=== PATIENT | female | born 2000 | race African-American/Black ===

== ENCOUNTER 2019-06-11 05:46 | Emergency (ER) | payer SELFPAY ==
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
[2019-06-11 06:06] VITALS: BP 129/87; PULSE 96; TEMP 97.6; BMI 46.0
[2019-06-11] MEDS ORDERED: ACETAMINOPHEN 325 MG TABLET (FP) PO ONE (06:15)
[2019-06-11 06:29] LABS: BASO % 0.6 % (0-2.0); EOS % 1.4 % (0-4.5); HEMATOCRIT 35.5 % (32.4-45.2); LYMPH % 34.7 % (8-40); MCH 30.3 pg (25.7-33.7); MCHC 33.8 g/dl (32.0-36.0); MEAN CELL VOLUME 89.7 fl (80-96); MEAN PLT VOLUME 8.2 fl (7.5-11.1); MONO % 9.3 % (3.8-10.2); PLATELET COUNT 308 K/MM3 (134-434); RBC 3.95 M/mm3 (3.60-5.2); WHITE BLOOD COUNT 6.5 K/mm3 (4.0-10.0)
[2019-06-11] MEDS ORDERED: ACETAMINOPHEN 325 MG TABLET (FP) ONE (06:29)
[2019-06-11 06:50] LABS: COCAINE, UR NEGATIVE ng/ml (CUTOFF=300); METHADONE, UR NEGATIVE ng/ml (CUTOFF=300); OPIATES, URI NEGATIVE ng/ml (CUTOFF=300); PHENCYCLIDINE,URINE NEGATIVE ng/ml (CUTOFF=25); URINE AMPHETAMINES NEGATIVE ng/ml (CUTOFF=500); URINE BARBITURATES NEGATIVE ng/ml (CUTOFF=200); URINE BENZODIAZEPINES NEGATIVE ng/ml (CUTOFF=200)
[2019-06-11 07:04] LABS: ALBUMIN 3.9 g/dl (3.4-5.0); ALK PHOS 74 U/L (45-117); ANION GAP 8 MMOL/L (8-16); BILIRUBIN,TOTAL 0.2 mg/dL (0.2-1); BLOOD UREA NITROGEN 12.9 mg/dL (7-18); CHLORIDE 107 mmol/L (98-107); CO2 25 mmol/L (21-32); CREATININE 0.8 mg/dL (0.55-1.3); GLUCOSE,RANDOM 100 mg/dL (74-106); POTASSIUM 4.1 mmol/L (3.5-5.1); SGOT/AST 23 U/L (15-37); SGPT/ALT 33 U/L (13-61); SODIUM 140 mmol/L (136-145); TOT PROT 7.4 g/dl (6.4-8.2)
--- NOTE | 2019-06-11 08:23 | PDOC ---
*Physical Exam - Vital Signs Last Vital Signs Temp Pulse Resp BP Pulse Ox 97.6 F 96 H 18 129/87 98 06/11/19 06:01 06/11/19 06:01 06/11/19 06:01 06/11/19 06:01 06/11/19 06:01 ED Treatment Course - LABORATORY CBC & Chemistry Diagram: 06/11/19 06:20 06/11/19 06:20 - ADDITIONAL ORDERS Additional order review: Laboratory Results 06/11/19 06/11/19 06/11/19 06:20 06:20 06:20 Sodium 140 Potassium 4.1 Chloride 107 Carbon Dioxide 25 Anion Gap 8 BUN 12.9 Creatinine 0.8 Est GFR (CKD-EPI)AfAm 122.14 Est GFR (CKD-EPI)NonAf 105.39 Random Glucose 100 Calcium 9.0 Total Bilirubin 0.2 AST 23 ALT 33 Alkaline Phosphatase 74 Total Protein 7.4 Albumin 3.9 Beta HCG, Quant < 1.0 Cancelled Opiates Screen Negative Methadone Screen Negative Barbiturate Screen Negative Phencyclidine Screen Negative Ur Amphetamines Screen Negative MDMA (Ecstasy) Screen Negative Benzodiazepines Screen Negative Cocaine Screen Negative U Marijuana (THC) Screen Positive A* Alcohol, Quantitative < 3.0 06/11/19 06:20 RBC 3.95 MCV 89.7 MCHC 33.8 RDW 14.0 MPV 8.2 Neutrophils % 54.0 Lymphocytes % 34.7 Monocytes % 9.3 Eosinophils % 1.4 Basophils % 0.6 - Medications Given in the ED: ED Medications Discontinued Medications Generic Name Dose Route Start Last Admin Trade Name Freq PRN Reason Stop Dose Admin Acetaminophen 650 mg 06/11/19 06:15 06/11/19 06:32 Tylenol - PO 06/11/19 06:16 650 mg ONCE ONE Administration Medical Decision Making - Medical Decision Making 06/11/19 08:[address] read pending 06/11/19 08:41 No evidence of a focal intracranial lesion or hemorrhage seen. Mild soft tissue swelling of the scalp with a laceration over left side of the forehead. Patient ok to discharge. *DC/Admit/Observation/Transfer Diagnosis at time of Disposition: Head injury Qualifiers: Encounter type: initial encounter Qualified Code(s): S09.90XA - Unspecified injury of head, initial encounter - Discharge Dispostion Disposition: HOME Condition at time of disposition: Improved Decision to Admit order: No - Referrals - Patient Instructions Printed Discharge Instructions: DI for Suture Removal Additional Instructions: Come back to the emergency department for any new, worsening or concerning symptom. Follow up with your primary care physician and OBGYN within the next 3 days. Come back to the emergency department, your primary doctor or any urgent care for suture removal in 5 to 7 days. - Post Discharge Activity
== END 2019-06-11 08:49 | disposition home or self-care (01) ==
LOC: JER 05:46
PROC: 0HQ1XZZ Repair Face Skin, External Approach (ICD-10-PCS; principal; 2019-06-11)
DX: S09.90XA Unspecified injury of head, initial encounter (principal); S01.81XA Laceration without foreign body of other part of head, initial encounter; W01.190A Fall on same level from slipping, tripping and stumbling with subsequent striking against furniture, initial encounter; Y93.89 Activity, other specified; Y92.003 Bedroom of unspecified non-institutional (private) residence as the place of occurrence of the external cause
CPT/HCPCS: 36415; 70450-TC; 80053; 80307; 84702; 85025; 99283-25

== ENCOUNTER 2019-10-04 01:25 | Emergency (ER) | payer OTHER ==
[2019-10-04 01:44] VITALS: BP 129/72; PULSE 77; TEMP 98.7; BMI 45.1
--- NOTE | 2019-10-04 01:52 | PDOC ---
*Physical Exam - Vital Signs Last Vital Signs Temp Pulse Resp BP Pulse Ox 98.7 F 77 18 129/72 100 10/04/19 01:32 10/04/19 01:32 10/04/19 01:32 10/04/19 01:32 10/04/19 01:32 Medical Decision Making - Medical Decision Making 10/04/19 01:52 Patient seen by the advanced practice provider under my direct supervision. Ancillary testing reviewed as necessary. I agree with plan as outlined by the advanced practice provider. Discharge - Discharge Information Problems reviewed: Yes Clinical Impression/Diagnosis: Laceration of eyebrow, right Qualifiers: Encounter type: initial encounter Qualified Code(s): S01.111A - Laceration without foreign body of right eyelid and periocular area, initial encounter Disposition: HOME - Follow up/Referral - Patient Discharge Instructions Patient Printed Discharge Instructions: DI for Laceration Repair With Dermabond - Post Discharge Activity
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
[2019-10-04] MEDS ORDERED: ACETAMINOPHEN 500 MG TABLET (FP) PO ONE (02:01)
[2019-10-04] MEDS ORDERED: ACETAMINOPHEN 500 MG TABLET (FP) ONE (02:15)
== END 2019-10-04 02:15 | disposition home or self-care (01) ==
LOC: JER 01:25
PROC: 0HQ1XZZ Repair Face Skin, External Approach (ICD-10-PCS; principal; 2019-10-04)
DX: S01.112A Laceration without foreign body of left eyelid and periocular area, initial encounter (principal); W20.8XXA Other cause of strike by thrown, projected or falling object, initial encounter; Y93.89 Activity, other specified; Y92.410 Unspecified street and highway as the place of occurrence of the external cause; Z91.041 Radiographic dye allergy status
CPT/HCPCS: 99281-25

== ENCOUNTER 2019-11-30 15:40 | Emergency (ER) | payer OTHER ==
--- NOTE | 2019-11-30 15:49 | PDOC ---
Rapid Medical Evaluation Chief Complaint: Headache Time Seen by Provider: 11/30/19 15:44 Medical Evaluation: Allergies Allergy/AdvReac Type Severity Reaction Status Date / Time Iodinated Contrast Media Allergy Verified 10/04/19 01:34 11/30/19 15:44 I have performed a brief in-person evaluation of this patient. The patient presents with a chief complaint of: right sided headache acute onset yesterday. + weakness/ no fevers or URI symptoms. Pertinent physical exam findings: tearful, hyperventilating, A&O x 3 last period in September I have ordered the following: UA/ UCG The patient will proceed to the ED for further evaluation. 11/30/19 15:48 Discharge Disposition - Diagnosis Headache - Discharge Dispostion Condition at time of disposition: Stable - Referrals - Patient Instructions - Post Discharge Activity
[2019-11-30 15:52] VITALS: BP 105/57; PULSE 83; TEMP 97.6; BMI 42.9
[2019-11-30 16:28] LABS: EPI CELLS 4.5 /HPF (0-5/HPF); HYALINE CASTS 3 /lpf (0-8); URINE APPEARANCE CLEAR; URINE BACTERIA 107.9 /hpf (NEGATIVE); URINE BILIRUBIN NEGATIVE (NEGATIVE); URINE COLOR YELLOW; URINE GLUCOSE (UA) NEGATIVE (NEGATIVE); URINE KETONE 1+ (NEGATIVE); URINE LEUK ESTERASE NEGATIVE (NEGATIVE); URINE NITRITE NEGATIVE (NEGATIVE); URINE PROTEIN TRACE (NEGATIVE); URINE RBC 1 /hpf (0-4); URINE UROBILINOGEN 0.2 mg/dL (0.2-1.0); URINE WBC 2 /hpf (0-5)
--- NOTE | 2019-11-30 16:30 | PDOC ---
History of Present Illness - General Chief Complaint: Headache Stated Complaint: WEAKNESS/ HEADACHE Time Seen by Provider: 11/30/19 15:44 - History of Present Illness Initial Comments: Joy Valenzuela is a 19yo otherwise healthy woman who presents with several complaints. She states that she had a mechanical fall at work yesterday afternoon. She went to pick something up, lost her balance, and fell. She hit her right forehead on a table as she fell. She did not lose consciousness and rembers the entire fall; she was able to get up immediately after the injury. She went home and went about her normal activities, but this morning when she woke up she had a headache. The headache is located over her right forehead. She took 1000mg acetaminophen in the afternoon with mimimal improvement, so she was concerned and came to the ED for evaluation. Ms Valenzuela denies any confusion, sleepiness, vomiting, focal weakness, numbness, tingling, changes in speech, or changes in vision following the incident. She endorses nausea, but she states this is chronic and that she was referred to GI. She also endorses chronic lower abdominal cramping; her LMP was in early September, and she has not taken a test. Past History - Past Medical History Allergies/Adverse Reactions: Allergies Allergy/AdvReac Type Severity Reaction Status Date / Time Iodinated Contrast Media Allergy Verified 10/04/19 01:34 Home Medications: Ambulatory Orders NK [No Known Home Medication] 06/11/19 COPD: No - Immunization History Immunization Up to Date: Yes - Psycho Social/Smoking Cessation Hx Smoking History: Never smoked Have you smoked in the past 12 months: No Information on smoking cessation initiated: No Hx Alcohol Use: No Drug/Substance Use Hx: No Review of Systems - Review of Systems Comments:: General: No fevers, no chills, no weight or appetite change, no malaise HEENT: No changes in vision, no changes in hearing, no congestion, no sore throat. +BROWN CV: No chest pain, no palpitations, no LE edema Pulm: No SOB, no cough, no wheezing GI: +frequent nausea, no vomiting, no change in bowel habits, no melena : No frequency, no urgency, no dysuria Musc: No back pain, no joint swelling, no recent injury Skin: No rash, no lesions, no erythema Endo: No excessive thirst, no heat/cold intolerance Heme: No unusual bruising or bleeding, no swollen glands Neuro: No syncope, no numbness/tingling, no focal weakness Vasc: No claudication Psych: No recent change in mood, no SI or HI *Physical Exam - Vital Signs Last Vital Signs Temp Pulse Resp BP Pulse Ox 97.6 F 83 18 105/57 L 99 11/30/19 15:44 11/30/19 15:44 11/30/19 15:44 11/30/19 15:44 11/30/19 15:44 - Physical Exam General: Comfortable, no acute distress HEENT: No visible injury. No erythema, ecchymosis, edema, or other visible injury. No point tendernes. PERRL, EOMI, MMM, voice normal, normal neck ROM Cards: RRR, no murmur appreciated Pulm: Comfortable on room air, clear to auscultation bilaterally Abd: Soft, nontender, nondistended Ext: Atraumatic. No LE edema. ROM intact. WWP Skin: Normal color, no rashes or lesions Neuro: A&Ox3, CN grossly intact, normal speech, motor/sensory grossly intact and symmetric. No focal deficits. Psych: Mood appropriate to situation ED Treatment Course - LABORATORY CBC & Chemistry Diagram: 11/30/19 17:10 11/30/19 17:10 - ADDITIONAL ORDERS Additional order review: Laboratory Results 11/30/19 11/30/19 15:58 15:58 Urine Color Yellow Urine Appearance Clear Urine pH 6.0 Ur Specific [place] 1.023 Urine Protein Trace Urine Glucose (UA) Negative Urine Ketones 1+ H Urine Blood 2+ H Urine Nitrite Negative Urine Bilirubin Negative Urine Urobilinogen 0.2 Ur Leukocyte Esterase Negative Urine WBC (Auto) 2 Urine RBC (Auto) 1 Urine Casts (Auto) 3 U Epithel Cells (Auto) 4.5 Urine Bacteria (Auto) 107.9 Urine HCG, Qual Negative Medical Decision Making - Medical Decision Making 11/30/19 16:29 Joy Valenzuela is a 19yo otherwise healthy woman who presents with several complaints include a headache over the right forehead after she hit her head on a table at work yesterday. She also endorses chronic nausea and chronic lower abdominal cramping, for which she has previously been referred to GI and gyne. - Most likely mild headache secondary to low impact trauma - No red flag symptoms including neurological deficits, vomiting, AMS. Per pt, nausea is chronic. Per american head CT rules, pt does not require CT scan for this injury - UA, urine preg sent from [facility]. test negative - Will give IVF, reglan, benadryl, acetaminophen for symptoms 11/30/19 18:28 - Labs reviewed. Unremarkable - Pt feeling improved, requesting to be discharged home - Will d/c to follow up with her PMD. Will give contact info for gynecology and GI per pt request. Discussed with Dr Javid Pereira PGY2 Discharge - Discharge Information Problems reviewed: Yes Clinical Impression/Diagnosis: Headache Qualifiers: Headache type: unspecified Headache chronicity pattern: acute headache Condition: Stable Disposition: HOME - Admission No - Follow up/Referral Referrals: [facility] [Provider Group] Jonah Contreras DO [Staff Physician] - - Patient Discharge Instructions Patient Printed Discharge Instructions: DI for Closed Head Injury Additional Instructions: Discharge Instructions: You were seen in the emergency department for headache. Home Care and Follow Up: - You may use over the counter medications as needed for pain at home. 650- 1000mg acetaminophen (Tylenol) or 600mg ibuprofen (Motrin or Advil) can be used every 6-8 hours. If needed for continued pain, these medications may be alternated every 3-4 hours. For example, if you take ibuprofen at 9am, you may take acetaminophen at noon, ibuprofen at 3pm, etc. - It is strongly recommended that you take ibuprofen with food to help prevent stomach irritation. - Try using an ice pack for 20 minutes every hour or a heating pad for additional pain control. - If your pain does not improve over the next week, see your regular doctor for follow up. - You should also see a GI doctor for your nausea and a architecture manager for your irregular period. You have been given contact information. - Seek immediate medical care if you have significant worsening of your symptoms , you have multiple episodes of vomiting per hour for several hours, you are excessively sleepy, you have any neurological symptoms (one-sided weakness, changes in your speech), or any other medical emergency. - Post Discharge Activity Work/Back to School Note: Back to Work
[2019-11-30] MEDS ORDERED: KETOROLAC TROMETHAMINE 30 MG/1 ML VIAL IVPUSH ONE (16:38)
[2019-11-30] MEDS ORDERED: METOCLOPRAMIDE HCL INJECTION 10 MG/2 ML VIAL IVPUSH ONE (16:44)
[2019-11-30] MEDS ORDERED: SODIUM CHLORIDE 0.9% 500 ML INFUS.BAG IV ONE (16:44)
[2019-11-30] MEDS ORDERED: ACETAMINOPHEN 1000 MG/100 ML VIAL (NON FORMULARY) IVPB ONE (17:26)
[2019-11-30] MEDS ORDERED: ACETAMINOPHEN INJECTION 100 ML IVPB ONE (17:41)
[2019-11-30 17:53] LABS: BASO % 0.3 % (0-2.0); EOS % 0.2 % (0-4.5); HEMATOCRIT 38.7 % (32.4-45.2); HEMOGLOBIN 12.9 GM/dL (10.7-15.3); LYMPH % 14.4 % (8-40); MCH 29.7 pg (25.7-33.7); MCHC 33.2 g/dl (32.0-36.0); MEAN CELL VOLUME 89.4 fl (80-96); MEAN PLT VOLUME 8.4 fl (7.5-11.1); MONO % 7.4 % (3.8-10.2); NEUT % 77.7 % (42.8-82.8); PLATELET COUNT 307 K/MM3 (134-434); RBC 4.33 M/mm3 (3.60-5.2); RDW 14.9 % (11.6-15.6); WHITE BLOOD COUNT 7.4 K/mm3 (4.0-10.0)
[2019-11-30 18:22] LABS: ALBUMIN 3.9 g/dl (3.4-5.0); BILIRUBIN,TOTAL 0.5 mg/dL (0.2-1); BLOOD UREA NITROGEN 10.8 mg/dL (7-18); CALCIUM 9.3 mg/dL (8.5-10.1); CREATININE 0.7 mg/dL (0.55-1.3); POTASSIUM 4.3 mmol/L (3.5-5.1); TOT PROT 7.6 g/dl (6.4-8.2)
== END 2019-11-30 19:00 | disposition home or self-care (01) ==
LOC: JER 15:40 → SUPCPDRO 15:40 → JER 19:00
PROC: 3E0333Z Introduction of Anti-inflammatory into Peripheral Vein, Percutaneous Approach (ICD-10-PCS; principal; 2019-11-30)
DX: R51 Headache (principal); W01.190A Fall on same level from slipping, tripping and stumbling with subsequent striking against furniture, initial encounter; Y93.89 Activity, other specified; Y92.238 Other place in hospital as the place of occurrence of the external cause; Y99.0 Civilian activity done for income or pay; Z91.041 Radiographic dye allergy status
CPT/HCPCS: 36415; 80053; 81003; 84703; 85025; 99282-25; J0131

== ENCOUNTER 2019-12-30 03:34 | Emergency (ER) | payer OTHER ==
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
[2019-12-30] MEDS ORDERED: LACTATED RINGERS SOLUTION 1000 ML INFUS.BAG IV ONE (03:49)
[2019-12-30] MEDS ORDERED: ACETAMINOPHEN 1000 MG/100 ML VIAL (NON FORMULARY) IVPB ONE (03:49)
[2019-12-30] MEDS ORDERED: ACETAMINOPHEN INJECTION 100 ML IVPB ONE (03:51)
[2019-12-30 03:52] VITALS: BMI 47.2
--- NOTE | 2019-12-30 04:00 | PDOC ---
Attending Attestation - Resident Resident Name: Ramu Berg - ED Attending Attestation I have performed the following: I have examined & evaluated the patient, The case was reviewed & discussed with the resident, I agree w/resident's findings & plan - HPI HPI: 12/30/19 06:20 Pt was arguing with boyfriend while washing dishes. She had dizziness; went to the bathroom and she felt dizzy. States that she had a miscarriage a couple weeks back and she saw some blood in the toilet bowl. No no bleed at all. Pt appears well. She is not tachy or febrile or ill appearing - Physicial Exam PE: 12/30/19 06:22 Pt has no blood in vag vault; no admexal tenderness and no discharge Pt A+Ox3 Normal vitals abd soft no flank pain Pt states that she has some subjective suprapubic pain, SHe has normal neuro exam - Medical Decision Making 12/30/19 06:23 Pt awaiting lab results. 12/30/19 06:24 Pt's CBC normal rest pending sono will be obtained in the AM We will sign her out to the day docs.
[2019-12-30 04:26] LABS: EOS % 1.4 % (0-4.5); HEMATOCRIT 37.9 % (32.4-45.2)
[2019-12-30 04:29] LABS: BASO % 0.7 % (0-2.0); HEMOGLOBIN 12.7 GM/dL (10.7-15.3); LYMPH % 32.8 % (8-40); MCH 30.4 pg (25.7-33.7); MCHC 33.4 g/dl (32.0-36.0); MEAN PLT VOLUME 9.3 fl (7.5-11.1); MONO % 9.4 % (3.8-10.2); NEUT % 55.7 % (42.8-82.8); PLATELET COUNT 329 K/MM3 (134-434); RBC 4.17 M/mm3 (3.60-5.2); RDW 15.1 % (11.6-15.6); WHITE BLOOD COUNT 7.5 K/mm3 (4.0-10.0)
[2019-12-30 04:39] LABS: INR 0.97 (0.83-1.09); PROTHROMBIN TIME (PATIENT) 11.4 SEC (9.7-13.0)
[2019-12-30 04:42] LABS: ACTIVATED PTT 34.1 SECONDS (25.2-36.5)
[2019-12-30 06:25] LABS: PH,URINE 5.5 (5.0-8.0); URINE APPEARANCE CLEAR; URINE BILIRUBIN NEGATIVE (NEGATIVE); URINE COLOR YELLOW; URINE GLUCOSE (UA) NEGATIVE (NEGATIVE); URINE KETONE TRACE (NEGATIVE); URINE LEUK ESTERASE NEGATIVE (NEGATIVE); URINE NITRITE NEGATIVE (NEGATIVE); URINE PROTEIN NEGATIVE (NEGATIVE); URINE UROBILINOGEN 0.2 mg/dL (0.2-1.0)
[2019-12-30 06:43] LABS: ALBUMIN 4.1 g/dl (3.4-5.0); ALK PHOS 79 U/L (45-117); ANION GAP 3 MMOL/L (8-16); BILIRUBIN,TOTAL 0.2 mg/dL (0.2-1); BLOOD UREA NITROGEN 11.4 mg/dL (7-18); CALCIUM 9.2 mg/dL (8.5-10.1); CHLORIDE 106 mmol/L (98-107); CO2 30 mmol/L (21-32); CREATININE 0.9 mg/dL (0.55-1.3); GLUCOSE,RANDOM 88 mg/dL (74-106); POTASSIUM 4.6 mmol/L (3.5-5.1); SGOT/AST 28 U/L (15-37); SGPT/ALT 29 U/L (13-61); SODIUM 139 mmol/L (136-145); TOT PROT 7.9 g/dl (6.4-8.2)
--- NOTE | 2019-12-30 09:19 | PDOC ---
*Physical Exam - Vital Signs Last Vital Signs Temp Pulse Resp BP Pulse Ox 97.9 F 63 18 106/41 L 99 12/30/19 07:06 12/30/19 07:06 12/30/19 07:06 12/30/19 07:06 12/30/19 07:06 - Physical Exam 19 yo F with a hx of recent miscarriage in November 2019 presents to the emerge ncy department with vaginal spotting and abdominal cramps. ED Treatment Course - LABORATORY CBC & Chemistry Diagram: 12/30/19 04:00 12/30/19 04:07 - ADDITIONAL ORDERS Additional order review: Laboratory Results 12/30/19 12/30/19 12/30/19 05:30 04:07 04:00 PT with INR INR PTT (Actin FS) Sodium 139 Potassium 4.6 Chloride 106 Carbon Dioxide 30 Anion Gap 3 L BUN 11.4 Creatinine 0.9 Est GFR (CKD-EPI)AfAm 105.93 Est GFR (CKD-EPI)NonAf 91.40 Random Glucose 88 Calcium 9.2 Total Bilirubin 0.2 AST 28 ALT 29 Alkaline Phosphatase 79 Total Protein 7.9 Albumin 4.1 Urine Color Yellow Urine Appearance Clear Urine pH 5.5 Ur Specific Bedias 1.032 Urine Protein Negative Urine Glucose (UA) Negative Urine Ketones Trace H Urine Blood Negative Urine Nitrite Negative Urine Bilirubin Negative Urine Urobilinogen 0.2 Ur Leukocyte Esterase Negative Blood Type O POSITIVE Antibody Screen Negative 12/30/19 04:00 PT with INR 11.40 INR 0.97 PTT (Actin FS) 34.1 Sodium Potassium Chloride Carbon Dioxide Anion Gap BUN Creatinine Est GFR (CKD-EPI)AfAm Est GFR (CKD-EPI)NonAf Random Glucose Calcium Total Bilirubin AST ALT Alkaline Phosphatase Total Protein Albumin Urine Color Urine Appearance Urine pH Ur Specific Bedias Urine Protein Urine Glucose (UA) Urine Ketones Urine Blood Urine Nitrite Urine Bilirubin Urine Urobilinogen Ur Leukocyte Esterase Blood Type Antibody Screen 12/30/19 04:00 RBC 4.17 MCV 91.0 MCHC 33.4 RDW 15.1 MPV 9.3 D Neutrophils % 55.7 D Lymphocytes % 32.8 D Monocytes % 9.4 Eosinophils % 1.4 D Basophils % 0.7 - Medications Given in the ED: ED Medications Discontinued Medications Generic Name Dose Route Start Last Admin Trade Name Freq PRN Reason Stop Dose Admin Acetaminophen 1,000 mg 12/30/19 03:49 12/30/19 04:14 Ofirmev Injection - IVPB 12/30/19 03:50 1,000 mg ONCE ONE Administration Lactated Ringer's 1,000 ml 12/30/19 03:49 12/30/19 04:13 Lactated Ringers Solution IV 12/30/19 03:50 1,000 ml ONCE ONE Administration Medical Decision Making - Medical Decision Making TVUS shows normal ovaries and uterus. Normal thickness of the endometrial stripe without gross evidence of retained products of conception Laboratory Tests 12/30/19 12/30/19 12/30/19 04:00 04:00 04:00 WBC 7.5 RBC 4.17 Hgb 12.7 Hct 37.9 MCV 91.0 MCH 30.4 MCHC 33.4 RDW 15.1 Plt Count 329 MPV 9.3 D Absolute Neuts (auto) 4.1 Neutrophils % 55.7 D Lymphocytes % 32.8 D Monocytes % 9.4 Eosinophils % 1.4 D Basophils % 0.7 Nucleated RBC % 0 PT with INR 11.40 INR 0.97 PTT (Actin FS) 34.1 Sodium Potassium Chloride Carbon Dioxide Anion Gap BUN Creatinine Est GFR (CKD-EPI)AfAm Est GFR (CKD-EPI)NonAf Random Glucose Calcium Total Bilirubin AST ALT Alkaline Phosphatase Total Protein Albumin Beta HCG, Quant Urine Color Urine Appearance Urine pH Ur Specific Bedias Urine Protein Urine Glucose (UA) Urine Ketones Urine Blood Urine Nitrite Urine Bilirubin Urine Urobilinogen Ur Leukocyte Esterase Blood Type O POSITIVE Antibody Screen Negative 12/30/19 12/30/19 04:07 05:30 WBC RBC Hgb Hct MCV MCH MCHC RDW Plt Count MPV Absolute Neuts (auto) Neutrophils % Lymphocytes % Monocytes % Eosinophils % Basophils % Nucleated RBC % PT with INR INR PTT (Actin FS) Sodium 139 Potassium 4.6 Chloride 106 Carbon Dioxide 30 Anion Gap 3 L BUN 11.4 Creatinine 0.9 Est GFR (CKD-EPI)AfAm 105.93 Est GFR (CKD-EPI)NonAf 91.40 Random Glucose 88 Calcium 9.2 Total Bilirubin 0.2 AST 28 ALT 29 Alkaline Phosphatase 79 Total Protein 7.9 Albumin 4.1 Beta HCG, Quant < 1.0 Urine Color Yellow Urine Appearance Clear Urine pH 5.5 Ur Specific Bedias 1.032 Urine Protein Negative Urine Glucose (UA) Negative Urine Ketones Trace H Urine Blood Negative Urine Nitrite Negative Urine Bilirubin Negative Urine Urobilinogen 0.2 Ur Leukocyte Esterase Negative Blood Type Antibody Screen beta quant is negative. patient to follow up with pmd and obgyn physician within 1 week after discharge for follow up care and management . Discharge - Discharge Information Problems reviewed: Yes Clinical Impression/Diagnosis: Miscarriage Condition: Improved Disposition: HOME - Admission No - Follow up/Referral Referrals: Mansi Juarez MD [Staff Physician] - - Patient Discharge Instructions Patient Printed Discharge Instructions: DI for Miscarriage, DI for Threatened Additional Instructions: You were seen in the emergency department for the evaluation for your bleeding. Your US shows no retained products. Please follow up with your primary medical doctor within 1 week after discharge for follow up care and management. Please return to the emergency department if you have worsening symptoms or new concerning symptoms. Thank you. Please follow up with your OBGYN physician within 3 days after discharge or the one referred to you. Thank you. - Post Discharge Activity
[2019-12-30 10:26] VITALS: BP 111/64; PULSE 67; TEMP 98
--- NOTE | 2019-12-30 10:27 | EKG ---
Test Reason : Blood Pressure : / mmHG Vent. Rate : 066 BPM Atrial Rate : 066 BPM P-R Int : 214 ms QRS Dur : 094 ms QT Int : 412 ms P-R-T Axes : 032 095 019 degrees QTc Int : 431 ms SINUS RHYTHM WITH SINUS ARRHYTHMIA WITH 1ST DEGREE A-V BLOCK RIGHTWARD AXIS BORDERLINE ECG NO PREVIOUS ECGS AVAILABLE Confirmed by Logan Fitzpatrick MD ([id number]) on 12/30/2019 10:27:06 AM Referred By: Confirmed By:Logan Fitzpatrick MD
== END 2019-12-30 10:26 | disposition home or self-care (01) ==
LOC: JER 03:34
PROC: 3E033NZ Introduction of Analgesics, Hypnotics, Sedatives into Peripheral Vein, Percutaneous Approach (ICD-10-PCS; principal; 2019-12-30)
DX: O03.9 Complete or unspecified spontaneous abortion without complication (principal); Z91.041 Radiographic dye allergy status
CPT/HCPCS: 36415; 76830-TC; 80053; 81003; 84702; 85025; 85610; 85730; 86850; 86900; 86901; 87086; 93005; 93010; 99285-25; J0131

== ENCOUNTER 2021-02-22 13:04 | Emergency (ER) | payer OTHER ==
[2021-02-22 13:13] VITALS: BP 115/69; PULSE 79; TEMP 98; BMI 43.9
[2021-02-22] MEDS ORDERED: AZITHROMYCIN 500 MG TABLET PO ONE (14:14)
[2021-02-22] MEDS ORDERED: AZITHROMYCIN 250 MG TABLET ONE (14:35)
[2021-02-22 14:53] LABS: PH,URINE 6.5 (5.0-8.0); URINE APPEARANCE CLEAR; URINE BILIRUBIN NEGATIVE (NEGATIVE); URINE COLOR YELLOW; URINE GLUCOSE (UA) NEGATIVE (NEGATIVE); URINE KETONE NEGATIVE (NEGATIVE); URINE LEUK ESTERASE NEGATIVE (NEGATIVE); URINE NITRITE NEGATIVE (NEGATIVE); URINE PROTEIN NEGATIVE (NEGATIVE); URINE UROBILINOGEN 0.2 mg/dL (0.2-1.0)
[2021-02-22 14:56] LABS: HCG,QUALITATIVE URINE Negative
== END 2021-02-22 15:09 | disposition home or self-care (01) ==
LOC: JER 13:04
DX: Z20.2 Contact with and (suspected) exposure to infections with a predominantly sexual mode of transmission (principal)
CPT/HCPCS: 81003; 84703; 87086; 87661; 99284-25

== ENCOUNTER 2023-10-08 22:48 | Emergency (ER) | payer OTHER ==
[2023-10-08 22:54] VITALS: BP 118/64; PULSE 72; RESP 20; TEMP 97.7; BMI 37.1
[2023-10-08] MEDS ORDERED: LIDOCAINE 5% TOPICAL PATCH TP ONE (23:23)
[2023-10-08] MEDS ORDERED: ACETAMINOPHEN 500 MG TABLET (FP) PO ONE (23:23)
[2023-10-08] MEDS ORDERED: ACETAMINOPHEN 500 MG TABLET (FP) ONE (23:36)
[2023-10-08] MEDS ORDERED: LIDOCAINE 4% PATCH TP ONE (23:37)
[2023-10-08 23:40] LABS: PH,URINE 6.5 (5.0-8.0); URINE APPEARANCE CLEAR; URINE BILIRUBIN NEGATIVE (NEGATIVE); URINE COLOR YELLOW; URINE GLUCOSE (UA) NEGATIVE (NEGATIVE); URINE KETONE TRACE (NEGATIVE); URINE LEUK ESTERASE NEGATIVE (NEGATIVE); URINE NITRITE NEGATIVE (NEGATIVE); URINE PROTEIN NEGATIVE (NEGATIVE)
[2023-10-08 23:42] LABS: HCG,QUALITATIVE URINE Negative
[2023-10-09] MEDS ORDERED: AZITHROMYCIN 250 MG TABLET PO ONE (01:22)
[2023-10-09] MEDS ORDERED: AMOX TR/POT CLAV 875MG/125MG TABLETS (FP) PO ONE ×2 (01:22→01:24)
[2023-10-09] MEDS ORDERED: DEXAMETHASONE SOD PHOSPHATE 10 MG/1 ML VIAL IM ONE (01:31)
[2023-10-09] MEDS ORDERED: AMOX TR/POT CLAV 875MG/125MG TABLETS (FP) ONE (01:33)
[2023-10-09] MEDS ORDERED: DEXAMETHASONE SOD PHOSPHATE 10 MG/1 ML VIAL ONE (01:33)
[2023-10-09] MEDS ORDERED: LIDOCAINE PATCH REMOVAL MC ONE (11:00)
== END 2023-10-09 01:44 | disposition home or self-care (01) ==
LOC: JER 22:48
PROC: 3E023GC Introduction of Other Therapeutic Substance into Muscle, Percutaneous Approach (ICD-10-PCS; principal; 2023-10-09)
DX: J02.9 Acute pharyngitis, unspecified (principal); R10.30 Lower abdominal pain, unspecified; R19.7 Diarrhea, unspecified; M79.10 Myalgia, unspecified site; M54.50 Low back pain, unspecified; Z20.822 Contact with and (suspected) exposure to COVID-19
CPT/HCPCS: 0241U-QW; 71046-TC-FY; 81003; 84703; 87077; 87086; 87651; 99284-25; J1100